=== PATIENT | female | born 1945 | race Caucasian/White ===

== ENCOUNTER 2017-07-08 11:29 | Emergency (ER) | payer MEDICARE, BC ==
--- NOTE | 2017-07-08 11:49 | ED ---
General Adult HPI - General Chief complaint: Fall Stated complaint: fall/right arm skin tear Time Seen by Provider: 07/08/17 11:38 Source: patient, family, RN notes reviewed Mode of arrival: wheelchair Limitations: no limitations - History of Present Illness Initial comments: 71-year-old female presents to the emergency per chief complaint of fall. Patient states she was getting out of the car and she tripped on the curb. Patient states that she did cut her right arm and she is obtaining her tetanus. She states that her right arm has some pain as well as the elbow. She isn't now she hit her head or not. She states she feels a small mild bump to the for head. The was there however did not witness the fall. She was able to ambulate after. She denies any other injury from this fall. Patient denies any recent fever, chills, shortness of breath, chest pain, back pain, abdominal pain , nausea vomiting, numbness or tingling, dysuria or hematuria, constipation or diarrhea, headaches or visual changes, or any other current symptoms. - Related Data Home Medications Medication Instructions Recorded Confirmed Howell 650 mg PO DAILY 07/08/17 07/08/17 Cholecalciferol [Vitamin D3] 1,000 unit PO DAILY 07/08/17 07/08/17 Latanoprost [Xalatan 0.005%] 1 drop BOTH EYES HS 07/08/17 07/08/17 Levothyroxine Sodium [Synthroid] 200 mcg PO DAILY 07/08/17 07/08/17 Vit C/E/Zn/Coppr/Lutein/Zeaxan 1 cap PO DAILY 07/08/17 07/08/17 [Preservision Areds 2 Softgel] Vitamin B Complex 1 cap PO DAILY 07/08/17 07/08/17 Vitamin E 1,000 unit PO DAILY 07/08/17 07/08/17 Allergies Allergy/AdvReac Type Severity Reaction Status Date / Time Sulfa (Sulfonamide Allergy Unknown Verified 07/08/17 12:29 Antibiotics) Review of Systems ROS Statement: Those systems with pertinent positive or pertinent negative responses have been documented in the HPI. ROS Other: All systems not noted in ROS Statement are negative. Past Medical History Past Medical History: Thyroid Disorder History of Any Multi-Drug Resistant Organisms: None Reported Past Surgical History: Hysterectomy Additional Past Surgical History / Comment(s): thyroid surgery Past Psychological History: No Psychological Hx Reported Smoking Status: Former smoker Past Alcohol Use History: None Reported Past Drug Use History: None Reported General Exam Limitations: no limitations General appearance: alert, in no apparent distress Head exam: Present: normocephalic, normal inspection. Absent: atraumatic ( Patient does appear to have a small frontal hematoma to the right side of the forehead) Eye exam: Present: normal appearance, PERRL, EOMI. Absent: scleral icterus, conjunctival injection, periorbital swelling ENT exam: Present: normal exam, mucous membranes moist Neck exam: Present: normal inspection. Absent: tenderness, meningismus, lymphadenopathy Respiratory exam: Present: normal lung sounds bilaterally. Absent: respiratory distress, wheezes, rales, rhonchi, stridor Cardiovascular Exam: Present: regular rate, normal rhythm, normal heart sounds. Absent: systolic murmur, diastolic murmur, rubs, gallop, clicks GI/Abdominal exam: Present: soft, normal bowel sounds. Absent: distended, tenderness, guarding, rebound, rigid Extremities exam: Present: tenderness (Tenderness to palpation of the right forearm and right elbow), normal capillary refill. Absent: normal inspection ( Patient appears to have a large skin tear to the right forearm), full ROM ( Limited range of motion due to the right elbow due to pain), pedal edema, joint swelling, calf tenderness Neurological exam: Present: alert, oriented X3, CN II-XII intact, reflexes normal. Absent: motor sensory deficit Psychiatric exam: Present: normal affect, normal mood Skin exam: Present: warm, dry Course Vital Signs 07/08/17 11:34 Temperature 97.8 F Pulse Rate 86 Respiratory 20 Rate Blood Pressure 163/75 O2 Sat by Pulse 98 Oximetry Medical Decision Making - Medical Decision Making 71-year-old female presents emergency department with chief complaint of right arm pain after a fall. At this time the patient did undergo wound care of her right skin tear. Unable to repair skin due to the extent of injury. At this time we did review x-rays were discussed Motrin for pain and follow-up and return parameters. Patient stated that she understood all cushions have any answered. She'll be discharged. - Radiology Data Radiology results: report reviewed, image reviewed Disposition Clinical Impression: Fall, Skin tear of right upper arm without complication, Contusion of right forearm Disposition: HOME SELF-CARE Condition: Stable Instructions: Fall Prevention for Older Adults (ED), Skin Tear (ED) Additional Instructions: Please use medication as discussed. Please follow up with family doctor if symptoms have not improved over the next two days. Please return to the emergency room if your symptoms increase or worsen or for any other concerns. Referrals: Maggie Randolph MD [STAFF PHYSICIAN] - 1-2 days Time of Disposition: 12:49
--- NOTE | 2017-07-08 12:15 | XR ---
EXAMINATION TYPE: XR elbow limited RT, XR forearm RT DATE OF EXAM: 07/08/2017 CLINICAL HISTORY: Right elbow and forearm pain after fall injury. TECHNIQUE: Frontal and lateral images of the right elbow and forearm are obtained. COMPARISON: None FINDINGS: There is no acute fracture/dislocation evident in the right elbow. No abnormal fat pad si gns are seen. The overlying soft tissue appears unremarkable. Images of right forearm show no acute fracture or dislocation. Visualized right wrist joint is felt w ithin normal limits. There is mild focal soft tissue swelling distally along dorsal surface. IMPRESSION: There is no acute fracture or dislocation in the left forearm or elbow.
--- NOTE | 2017-07-08 12:34 | CT ---
EXAMINATION TYPE: CT brain cha mendoza con DATE OF EXAM: 07/08/2017 COMPARISON: NONE HISTORY: Fall today with Right frontal injury headache and neck pain. CT DLP: 1853 mGycm. Automated Exposure Control for Dose Reduction was Utilized. TECHNIQUE: CT scan of the head and cervical spine are performed without contrast. FINDINGS: There is no acute intracranial hemorrhage or midline shift identified. There is mild vent ricular and sulcal prominence consistent with mild diffuse age-related cerebral atrophy.. There is 9 mm mucous retention cyst or polyp in the lateral left posterior ethmoid sinus on axial image 12 other so visualized paranasal sinuses are clear. Neither lens is well-visualized. The calvarium is intact . Cervical spine is visualized in its entirety from C1 through upper thoracic levels and demonstrates s traightened alignment without evidence of acute fracture or dislocation. Prevertebral soft tissue ap pears within normal limits. The C1-C2 articulation is within normal limits on the coronal images. Sp inal canal is preserved on sagittal images. Review of axial images shows multilevel right-sided uncov ertebral facet degenerative changes contributing to multilevel neural foraminal narrowing most promin ent at C2-C3 level there are axial image 39. Thyroid gland is atrophic or surgically absent. Visualiz ed lung apices are clear. IMPRESSION: 1. There is no acute fracture or dislocation evident in the cervical spine. Straightening of spine wi th multilevel right-sided uncovertebral facet degenerative changes are noted. 2. No acute intracranial hemorrhage or midline shift is seen.
[2017-07-08] MEDS ORDERED: BACITRACIN OINT 1 EACH PACKET TOPICAL ONE (12:47)
[2017-07-08 13:02] VITALS: BP 156/69; PULSE 88; RESP 18; TEMP 98.6
== END 2017-07-08 13:02 | disposition home or self-care (01) ==
LOC: EC 11:29
DX: S51.811A Laceration without foreign body of right forearm, initial encounter (principal); S00.83XA Contusion of other part of head, initial encounter; E07.9 Disorder of thyroid, unspecified; Z87.891 Personal history of nicotine dependence; Z79.899 Other long term (current) drug therapy; Z88.2 Allergy status to sulfonamides; W01.0XXA Fall on same level from slipping, tripping and stumbling without subsequent striking against object, initial encounter
CPT/HCPCS: 70450; 72125; 99284